=== PATIENT | female | born 2005 | race Caucasian/White ===

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

== ENCOUNTER 2023-06-04 15:45 | Emergency (ER) | payer BC, OTHER ==
[~2023-06-04] VITALS: Ht 160 cm; Wt 48.1 kg
[~2023-06-04 15:45] MED LIST changes: +FLUOXETINE HCL10 MG PO; +NORGESTIMATE-E1 EAC1 PO; +VYVANSE50 MG PO; +ZOFRAN4 MG PO
--- OUTSIDE RECORDS SUMMARY | 2023-06-04 15:54 | XMS ---
PreManage Notification: DEBRA RESTREPO Security Exchange Teller Events No recent Security Events currently on file CRITERIA MET - PDMP CARE PROVIDERS IRAM NAGY Physician Computer Bookkeeper Current PHONE: Unknown Maria Teresa has no Care Guidelines for this patient. EJaya VISIT COUNT (12 MO.) 1 CHIVO Abdul TOTAL 1 NOTE: Visits indicate total known visits. ED/UCC VISIT TRACKING (12 MO.) 06/04/2023 15:45 [place] TYPE: Emergency COMPLAINT: - PANIC ATTACK INPATIENT VISIT TRACKING (12 MO.) No inpatient visits to display in this time frame [email or web address]
[2023-06-04 16:02] LABS: BASOPHILS 0.4 % (0-2); EOSINOPHILS 0.6 % (0-6); HEMATOCRIT 42.3 % (35.0-50.0); HEMOGLOBIN 14.2 g/dL (12.0-18.0); LYMPHOCYTES 25.4 % (24-44); MCH 30.2 (27-36); MCHC 33.6 g/dl (30-36); MCV 89.9 fl (81-99); MONOCYTES 6.2 % (0-12); NEUTROPHILS 67.4 % (39-80); PLATELET COUNT 235 K/uL (140-440); RBC 4.71 M/ul (4.3-5.7); RDW 12.7 (10.5-15.0)
[2023-06-04 16:16] LABS: ALBUMIN 4.5 g/dL (3.4-5.0); ALBUMIN/GLOBULIN RATIO 1.32 (1.1-2.4); ANION GAP 20.3 (7-21); BILIRUBIN, TOTAL 1.6 ng/dL (0.2-1.0); BUN/CREATININE RATIO 12.12 (6.0-28.6); CALCIUM 9.4 mg/dL (8.5-10.1); CREATININE, SERUM 0.99 mg/dL (0.55-1.02); MAGNESIUM 1.9 mg/dL (1.8-2.4); POTASSIUM 3.3 mmol/L (3.5-5.1); PROTEIN, TOTAL 7.9 g/dL (6.4-8.2)
[2023-06-04] MEDS ORDERED: ATIVAN0.5 MG PO (16:23)
[2023-06-04 17:38] VITALS: BP 123/82
== END 2023-06-04 17:30 | disposition home or self-care (01) ==
LOC: ED 15:45
PROVIDERS: Family Medicine
DX: F41.9 Anxiety disorder, unspecified (principal)
CPT/HCPCS: 36415; 80053; 83735; 85025; 96374; 99283-25; J2060; J7121